=== PATIENT | male | born 1995 | race Hispanic/Latino ===

== ENCOUNTER 2018-07-11 01:10 | Emergency (ER) | payer OTHER ==
[2018-07-11 01:35] LABS: APPEARANCE,URINE CLEAR (CLEAR); BILIRUBIN,URINE NEGATIVE (NEGATIVE); COLOR,URINE YELLOW (YELLOW); GLUCOSE, URINE (UA) NEGATIVE (NEGATIVE); KETONES,URINE 15 mg/dL (NEGATIVE); LEUKOCYTE ESTERASE ,URINE NEGATIVE (NEGATIVE); NITRATE,URINE NEGATIVE (NEGATIVE); OCCULT BLOOD,URINE NEGATIVE (NEGATIVE); PROTEIN,URINE NEGATIVE (NEGATIVE); UROBILINOGEN,URINE 0.2 mg/dL (0.2-1.0)
[2018-07-11 01:59] LABS: POTASSIUM 3.4 mmol/L (3.5-5.1)
[2018-07-11] MEDS ORDERED: LISINOPRIL 5 MG TABLET ONE (02:32)
[2018-07-11] MEDS ORDERED: POTASSIUM CHLORIDE 20 MEQ ERTAB PO ONE (02:33)
== END 2018-07-11 02:41 ==
LOC: EDH 01:10
DX: I10 Essential (primary) hypertension (principal); E87.6 Hypokalemia; R51 Headache; R53.1 Weakness
CPT/HCPCS: 36415; 80048; 81003; 93005